=== PATIENT | male | born 1975 | race Caucasian/White ===

== ENCOUNTER 2018-10-04 03:30 | Inpatient (IN) ==
[2018-10-04 04:20] LABS: BASO# 0.05 X1000 (0.0-0.2); BASO% 0.7 % (0.0-0.8); EOS# 0.18 X1000 (0.0-0.7); EOS% 2.5 % (0.0-10.0); HEMATOCRIT 40.4 % (42.0-52.0); HEMOGLOBIN 13.7 g/dL (14.0-18.0); LYMPH# 2.81 X1000 (1.2-3.4); LYMPH% 39.2 % (20.5-51.1); MCH 30.6 PG (27-31); MCHC 33.9 g/dL (33-37); MCV 90.4 FL (81-99); MONO# 0.36 X1000 (0.11-0.59); MPV 10.8 FL (7.4-10.4); NEUT# 3.77 X1000 (1.4-6.5); NEUT% 52.6 % (42.2-75.2); PLT 225 X1000 (130-400); RBC 4.47 XMIL (4.7-6.1); RDW 14.5 % (11.5-14.5); WBC 7.17 X1000 (4.8-10.8)
[2018-10-04] MEDS ORDERED: ASPIRIN PO ONE (04:30)
--- NOTE | 2018-10-04 04:30 | PROVIDER DOCUMENTATION ---
HPI-Chest Pain - General Chief Complaint: Shortness of Breath Stated Complaint: SOB/CHF Time Seen by Provider: 10/04/18 04:01 Allergies/Adverse Reactions: Patient Allergies Allergy/AdvReac Type Severity Reaction Status Date / Time No Known Allergies Allergy Verified 10/04/18 04:05 Home Medications: Home Medication List Medication Instructions Recorded Confirmed Last Taken Type Albuterol Sulfate [Albuterol 8.5 gm INHALATION Q4-6H PRN PRN #1 09/15/18 10/04/18 10/03/18 18:00 Rx Sulfate Hfa] [email or web address] Furosemide [Lasix] 20 mg PO DAILY #30 tab 09/15/18 10/04/18 10/03/18 08:00 Rx - History of Present Illness-CP Nature of Presenting Problem: SOB X 3 WEEKS, EDEMA IS BETTER WITH RECENT ADIOTION LASIX, COSTAL MARGIN/EPIGSTRIC CP X 3 HR IS MOD SEVERE. SM 1PPD Location: reports: epigastric (costal margin pains x 3hr, moderate severe forcing pt to the ER. SOB worse tonight but problem x 3 weeks) Quality of Pain: reports: aching, tightness Severity in ED: moderate Onset/Duration: 1-3 hours ago Timing: still present Context/Activities at Onset: reports: light activity Associated Symptoms: reports: dizziness, fatigue, shortness of breath. denies: abdominal pain, edema, fever/chills, heartburn, syncope Nitro Today/Relief: no nitro taken today Aspirin Treatment Today: no aspirin today Review of Systems - Adult - REVIEW OF SYSTEMS - ADULT Constitutional: reports: no symptoms reported, fatique. denies: chills, fever Eyes: reports: no symptoms reported Ears, Nose, Mouth & Throat: reports: no symptoms reported Cardiovascular: reports: see HPI Respiratory: reports: cough, shortness of breath Gastrointestinal: reports: no symptoms reported Genitourinary: reports: no symptoms reported Musculoskeletal: reports: no symptoms reported Integumentary: reports: no symptoms reported Neurological: reports: no symptoms reported Psychiatric: reports: no symptoms reported Endocrine: reports: no symptoms reported Hematologic/Lymphatic: reports: no symptoms reported Allergic/Immunologic: reports: no symptoms reported All Other Systems: Reviewed and Negative Past History - Adult - PAST MEDICAL HISTORY-ADULT Review of Records: reports: Nursing Assessment Review, Medications Reviewed, Social history reviewed & non-contributory. Major Childhood Illnesses: reports: denies history Cardiovascular: reports: CHF Respiratory: reports: COPD Gastrointestinal: reports: denies history Obstetrical/Gynecological: reports: denies history Genitourinary: reports: denies history Musculoskeletal: reports: denies history Neurological: reports: denies history Psychiatric: reports: denies history Endocrine/Immune: reports: denies history Other Conditions: reports: denies history Physical Exam-General - PHYSICAL EXAM-ADULT Initial Vital Signs Reviewed: Yes (TACHYCARDIA, BP SATISFACTORY) - CONSTITUTIONAL General Appearance: alert, moderate distress - EYES Eyes: PERRL/EOMI - HEAD, EARS, NOSE, MOUTH & THROAT HENMT: moist mucous membranes - NECK Neck: supple - RESPIRATORY Respiratory: lungs clear, normal breath sounds, no accessory muscle use - CARDIOVASCULAR Cardiovascular: regular rate, rhythm, no edema, no murmur, JVD, tachycardia, gallop/S4 (TENDER AND FULLNESS OVER LIVER) - GASTROINTESTINAL (ABDOMEN) Abdominal Exam: non tender, soft, other - MUSCULOSKELETAL Extremity: normal range of motion, non-tender, normal gait, normal inspection, no pedal edema, no calf tenderness, normal capillary refill - SKIN Integumentary: normal color, normal turgor, warm/dry - 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, grossly normal, no motor/sensory deficits - PSYCHIATRIC Psych/Mental Status: normal mood/affect, normal thought content, normal thought process, oriented x 3 - HEART Score HEART Score: History: Moderately Suspicious HEART Score: ECG: Non-Specific Repolarization Disturbance/LBBB/PM HEART Score: Age: < or = 45 Years HEART Score: Risk Factors for Atherosclerotic Disease: 1 or 2 Risk Factors HEART Score: Troponin: < or = Normal Limit Total HEART Score:: 3 Progress - PLAN OF CARE/RESULTS Progress/Plan/Lab Results: Vital Signs - 8 hr 10/04/18 03:32 10/04/18 03:44 10/04/18 03:45 Temperature 97.7 F Pulse Rate 114 H 120 H Respiratory Rate 28 H 26 H 28 H Blood Pressure 130/96 127/107 O2 Sat by Pulse Oximetry 100 90 L 92 L 10/04/18 03:47 10/04/18 04:00 10/04/18 04:02 Temperature Pulse Rate 116 H 117 H 121 H Respiratory Rate 26 H 17 26 H Blood Pressure 130/95 127/90 O2 Sat by Pulse Oximetry 95 100 99 10/04/18 04:10 10/04/18 04:17 10/04/18 04:20 Temperature Pulse Rate 119 H 120 H 118 H Respiratory Rate 18 26 H 23 Blood Pressure 126/108 O2 Sat by Pulse Oximetry 98 97 99 10/04/18 04:35 10/04/18 04:40 10/04/18 04:47 Temperature Pulse Rate 122 H 126 H 124 H Respiratory Rate 26 H 30 H 20 Blood Pressure 116/94 O2 Sat by Pulse Oximetry 98 98 100 10/04/18 04:50 10/04/18 05:00 10/04/18 05:02 Temperature Pulse Rate 121 H 118 H 110 H Respiratory Rate 22 22 22 Blood Pressure 128/99 O2 Sat by Pulse Oximetry 97 98 97 10/04/18 05:10 10/04/18 05:17 10/04/18 05:20 Temperature Pulse Rate 118 H 117 H 112 H Respiratory Rate 22 24 13 Blood Pressure 129/100 O2 Sat by Pulse Oximetry 98 98 100 10/04/18 05:30 10/04/18 05:32 10/04/18 05:40 Temperature Pulse Rate 115 H 115 H 114 H Respiratory Rate 24 22 15 Blood Pressure 148/85 O2 Sat by Pulse Oximetry 98 100 98 Laboratory Results - last 24 hr 10/04/18 10/04/18 10/04/18 03:57 03:57 03:57 WBC 7.17 RBC 4.47 L Hgb 13.7 L Hct 40.4 L MCV 90.4 MCH 30.6 MCHC 33.9 RDW Std Deviation 14.5 Plt Count 225 MPV 10.8 H Immature Gran % (Auto) 0.0 Neut % (Auto) 52.6 Lymph % (Auto) 39.2 Dillon % (Auto) 5.0 Eos % (Auto) 2.5 Baso % (Auto) 0.7 Immature Gran # (Auto) 0.00 Neut # (Auto) 3.77 Lymph # (Auto) 2.81 Dillon # (Auto) 0.36 Eos # (Auto) 0.18 Baso # (Auto) 0.05 Sodium 141 Potassium 4.1 Chloride 104 Carbon Dioxide 25 Anion Gap 12 BUN 14 Creatinine 1.0 Estimated GFR/1.73 m2 > 60 BUN/Creatinine Ratio 14 Glucose 104 Calculated Osmolality 282 Calcium 9.0 Total Bilirubin 0.46 AST 33 ALT 34 Alkaline Phosphatase 103 Creatine Kinase 93 Troponin T 0.011 [id number]-[id number] Pept Total Protein 7.0 Albumin 3.9 Globulin 3.1 Albumin/Globulin Ratio 1.3 Plasma Lactate Urine Opiates Screen Ur Oxycodone Screen Ur Methadone, Qual Ur Barbiturates Screen Ur Phencyclidine Scrn Ur Amphetamines Screen U Benzodiazepines Scrn Urine Cocaine Screen U Cannabinoids Screen 10/04/18 10/04/18 10/04/18 03:57 04:22 04:48 WBC RBC Hgb Hct MCV MCH MCHC RDW Std Deviation Plt Count MPV Immature Gran % (Auto) Neut % (Auto) Lymph % (Auto) Dillon % (Auto) Eos % (Auto) Baso % (Auto) Immature Gran # (Auto) Neut # (Auto) Lymph # (Auto) Dillon # (Auto) Eos # (Auto) Baso # (Auto) Sodium Potassium Chloride Carbon Dioxide Anion Gap BUN Creatinine Estimated GFR/1.73 m2 BUN/Creatinine Ratio Glucose Calculated Osmolality Calcium Total Bilirubin AST ALT Alkaline Phosphatase Creatine Kinase Troponin T [id number] Pept 5671 H Total Protein Albumin Globulin Albumin/Globulin Ratio Plasma Lactate 2.1 Urine Opiates Screen NONE DETECTED Ur Oxycodone Screen NONE DETECTED Ur Methadone, Qual NONE DETECTED Ur Barbiturates Screen NONE DETECTED Ur Phencyclidine Scrn NONE DETECTED Ur Amphetamines Screen PRESUMPTIVE POSITIVE A U Benzodiazepines Scrn NONE DETECTED Urine Cocaine Screen NONE DETECTED U Cannabinoids Screen PRESUMPTIVE POSITIVE A Orders Category Date Time Status Saline Loc NOW Care 10/04/18 04:08 Active CHEST-2 VIEWS [RAD] Stat Exams 10/04/18 04:01 Taken BLOOD CULTURE [BLDCUL] Stat Lab 10/04/18 04:40 Results CBC WITH DIFF [HEME] Stat Lab 10/04/18 03:57 Completed CK PROFILE [SP CHEM] Stat Lab 10/04/18 03:57 Completed COMPREHENSIVE METABOLIC PANEL [CHEM] Stat Lab 10/04/18 03:57 Completed LACTATE, PLASMA [CHEM] Stat Lab 10/04/18 04:22 Completed PRO B-NATRIURETIC PEPTIDE Stat Lab 10/04/18 03:57 Completed TROPONIN T Stat Lab 10/04/18 03:57 Completed URINE DRUG SCREEN Stat Lab 10/04/18 04:48 Completed Aspirin Med 10/04/18 04:30 Discontinued 325 mg PO NOW ONE Aspirin EC Med 10/04/18 04:33 Discontinued 325 mg .ROUTE .STK-MED ONE Furosemide [Lasix] Med 10/04/18 05:31 Discontinued 40 mg IV NOW ONE EKG [EKG] Stat Ther 10/04/18 03:59 Ordered Result Diagrams: 10/04/18 03:57 10/04/18 03:57 - CONSULTS/PCP/HOSPITALIST Notification #1 *Consult/PCP/Hospitalist*: DR KATE Time Discussed: 06:21 Consult Disposition: Admit Departure - Departure Date of Disposition Decision: 10/04/18 Time of Disposition Decision: 06:21 DIAGNOSIS: Acute exacerbation of congestive heart failure, Tachycardia, Cardiomegaly, Amphetamine abuse, Tobacco abuse Disposition: ADMITTED INPATIENT 09 Certified Medical Emergency: Emergent Condition: Fair Referrals and Follow-Ups: None,PCP [Primary Care Provider] - - Critical Care Note This patient required my direct & personal management of CC.: Yes Total Time (mins): 30 Critical Care Statement: This patient required my direct personal management to treat or rule out processes, the absence of which, could potentiallly result in sudden, clinically significant life or limb threatening deterioration. Attestation - Physician/ APRYL Attestation The physician spent face to face time with patient:: Yes Advanced Practice Provider documentation review:: Supervising physician onsite and consulted in the evaluation and care of this patient. The physician did have a face to face encounter with the patient.
[2018-10-04] MEDS ORDERED: ASPIRIN EC ONE (04:33)
[2018-10-04 04:49] LABS: AGAP 12; ALB/GLOB RATIO 1.3; ALBUMIN 3.9 g/dL (3.5-5.0); ALKALINE PHOSPHATASE 103 U/L (32-122); BUN 14 mg/dL (8-22); CHLORIDE 104 mmol/L (98-107); CK PROFILE 93 U/L (24-204); COSMO 282; ESTIMATED GFR > 60; GLUCOSE 104 mg/dL (70-104); GOT 33 U/L (10-34); GPT 34 U/L (10-44); POTASSIUM 4.1 mmol/L (3.5-5.1); SODIUM 141 mmol/L (136-145); TCO2 25 mmol/L (25-35); TOTAL BILIRUBIN 0.46 mg/dL (0.20-1.00)
[2018-10-04] MEDS ORDERED: LASIX IV ONE (05:31)
[2018-10-04 05:54] LABS: UR AMPHETAMINES QUAL PRESUMPTIVE POSITIVE (NONE DETECT); UR BARBITUATES QUAL NONE DETECTED (NONE DETECT); UR BENZODIAZEPIN QUAL NONE DETECTED (NONE DETECT); UR CANNABINOIDS QUAL PRESUMPTIVE POSITIVE (NONE DETECT); UR COCAINE QUAL NONE DETECTED (NONE DETECT); UR METHADONE QUAL NONE DETECTED (NONE DETECT); UR OPIATES QUAL NONE DETECTED (NONE DETECT); UR OXYCODONE QUAL NONE DETECTED (NONE DETECT); UR PCP QUAL NONE DETECTED (NONE DETECT)
--- NOTE | 2018-10-04 06:26 | Diag Imaging Result Doc PS360 ---
CHEST-2 VIEWS - 10/04/2018 INDICATION: SOB COMPARISON: 09/15/2018 FINDINGS: There is cardiomegaly and mild pulmonary vascular congestion. The pulmonary edema has nearly resolved. There is still some trace residual infiltrate in the posterior costophrenic angle on the left side. IMPRESSION: Significant improvement in the pulmonary edema. Cardiomegaly and pulmonary vascular congestion. Electronically signed by Beto Mcduffie 10/04/2018 6:23 AM
[2018-10-04] MEDS ORDERED: TYLENOL PO PRN ×2 (06:46→06:49)
[2018-10-04] MEDS ORDERED: ZOFRAN IV PRN (06:46)
[2018-10-04] MEDS ORDERED: VENTOLIN HFA INH PRN (06:48)
--- NOTE | 2018-10-04 07:19 | EKG Report ---
Test Performed on : 10/04/2018 03:49:26 AM Test Reason : SOB Blood Pressure : / mmHG Vent. Rate : 119 BPM Atrial Rate : 119 BPM P-R Int : 126 ms QRS Dur : 104 ms QT Int : 344 ms P-R-T Axes : 067 005 168 degrees QTc Int : 483 ms Sinus tachycardia. Left ventricular hypertrophy with repolarization abnormality Abnormal ECG When compared with ECG of 15-SEP-2018 04:38, (Unconfirmed) No significant change was found Unconfirmed Result
[2018-10-04] MEDS: LASIX IV SCH ×2 (07:36→18:37)
[2018-10-04] MEDS: LOVENOX SUBQ SCH (07:36)
--- NOTE | 2018-10-04 08:01 | HISTORY AND PHYSICAL ---
ADDENDUM The patient is seen and examined by myself. Full note dictated and discussed with nurse practitioner. Patient presented to the hospital with a couple of weeks increased shortness of breath, coughing. He states he was just in the hospital recently, was diagnosed again with congestive heart failure, states he has not had an echocardiogram in several years. Denies using methamphetamine, although, his urine drug screen was actually positive. He states he has been out of his Lasix. We will admit him to the hospital. Will check an echocardiogram, watch him for withdrawal, place him on Lasix, again attempting to reeducate him. Please see full note dictated by nurse practitioner. cc: Frankie Trujillo MD
--- NOTE | 2018-10-04 09:53 | HISTORY AND PHYSICAL ---
CHIEF COMPLAINT: Shortness of breath times 2 to 3 weeks. HISTORY OF PRESENT ILLNESS: Mr. Clayton is a 43-year-old male who presents to the ER today with complaints of shortness of breath x2 to 3 weeks. The patient states he has some chest pain with this shortness of breath. There is mild pressure to the mid abdomen that comes and goes. The patient states that he also has a cough that is productive with yellow sputum. The patient states that 3 weeks ago he came to the ER, and started him on Lasix 20 mg p.o. daily and a albuterol inhaler daily. The patient denies any nausea, vomiting, or diarrhea. The patient denies any other pain besides the chest pain. The patient denies any edema to the lower extremities. PAST MEDICAL HISTORY: Positive for CHF that was diagnosed 3 years ago. The patient was initially started on Lasix, but however, he quit taking his Lasix sometime back because he ran out of the medication. The patient was started on Lasix again 3 weeks ago in the ER. Methamphetamine abuse. PAST SURGICAL HISTORY: None. FAMILY HISTORY: Mother is currently living with no medical history. Dad is and committed suicide. SOCIAL HISTORY: The patient smokes cigarettes 1 pack per day for greater than 15 years. Denies alcohol. Patient states that he quit doing methamphetamines greater than a year ago. However, his drug screen is positive for amphetamine and marijuana. 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 ALLERGIES: No known drug allergies. MEDICATIONS: Lasix 20 mg p.o. daily and albuterol sulfate inhaler 1 puff every 4 to 6 hours p.r.n. LABORATORY/DIAGNOSTICS: White blood cell count 7.17, hemoglobin 13.7, hematocrit 40.4, and platelet count 225,000. Sodium 141, potassium 4.1, chloride 104, carbon dioxide 25, BUN 14, creatinine 1, glucose 104, calcium 9, total bilirubin is 0.46, AST is 33, ALT is 34, alkaline phosphatase 103. Creatinine kinase is 93. Troponin's 0.011. ProBNP 5671, plasma lactate 2.1. Toxicology report shows the patient is positive for amphetamine and cannabinoids. Chest x-ray on 10/04 in comparison to a chest x-ray that was done on 09/15/2018 shows significant improvement in pulmonary edema, cardiomegaly and pulmonary vascular congestion. REVIEW OF SYSTEMS: A 14 point review of system was conducted with the patient. All were negative except for pertinent positives mentioned above in HPI. PHYSICAL EXAMINATION: VITAL SIGNS: Heart rate 115, respiratory rate 22, blood pressure 148/85 with a MAP of 99. 02 sats 100% on room air. GENERAL: This is a well-developed 43-year-old male lying on the ER stretcher in no acute distress. He is alert and oriented x4 and able to answer questions appropriately. HEENT: Head is atraumatic and normocephalic. Pupils are equal, round, reactive to light and accommodation. Oral mucosa is dry. NECK: Supple. Trachea is midline. CARDIOVASCULAR: S1, S2 noted. No murmurs, gallops, or rubs appreciated with a regular rate and rhythm. No JVD. PULMONARY: The patient has symmetrical chest expansion bilaterally. Lungs sounds are clear to auscultation bilaterally all mckeon. ABDOMEN: Soft and nondistended. There is no overt tenderness noted. Bowel sounds are present in all 4 quadrants and were normoactive. EXTREMITIES: Pedal pulses present +2. Capillary refill is less than 3. Negative for edema. INTEGUMENTARY: The patient's skin is intact, pink, warm, and dry. NEUROLOGIC: The patient is alert and oriented x4, and able to move all extremities and able to follow commands, does not appear to have any focal neurological deficits noted at this time. ASSESSMENT AND PLAN: 1. CHF exacerbation. 2. We will start the patient on 40 mg Lasix IV q.12 hours. Serial CK and troponin's ordered. Echocardiogram ordered for this morning. 3. Acute respiratory distress. Albuterol sulfate inhaler q.4 to 6 p.r.n. 4. Drug abuse. We will give cessation information. 5. Tobacco dependence. We will give cessation information. Dictated by DIONY Orlando for Frankie Trujillo MD cc: Frankie Trujillo MD [facility]
[2018-10-04] MEDS: COREG PO SCH ×2 (12:47→20:23)
--- NOTE | 2018-10-04 14:27 | ECHO REPORT ---
ORDER DATE: 10/04/2018 INDICATION: Congestive heart failure, chronic obstructive pulmonary disease. FINDINGS: 1. The right atrium is mildly enlarged at 4.5 cm. 2. Moderate tricuspid regurgitation. RV systolic pressure of 80 suggesting pulmonary hypertension. 3. The right ventricle is enlarged with moderate reduction in RV systolic function. 4. Mild pulmonic insufficiency. 5. Moderate left atrial enlargement with a volume index of 38. 6. There is no mitral valve prolapse. Moderate mitral regurgitation. There is apical tenting of the mitral leaflets. 7. Left ventricle is severely dilated with an end-diastolic dimension of 7.5 cm. Normal wall thicknesses with a posterior and interventricular septal wall thickness of 0.9 cm each. Severe reduction in LV systolic function with an estimated EF of 10% to 15% and global hypokinesis. Optison echo contrast was used on this study. I do not see any definite evidence of LV thrombus although the apex on some views is difficult to visualize. 8. Aortic valve opens well. Trace insufficiency. No stenosis. 9. Aorta appears normal in visualized segments. 10. No pericardial effusion seen. cc: MD Frankie Lomeli MD
[2018-10-04] MEDS: NICODERM PATCH TD SCH (18:55)
[2018-10-04 19:48] LABS: HIV ANTIBODY SCREEN SEE COMMENTS
[2018-10-05] MEDS: LOVENOX SUBQ SCH ×2 (05:50→07:03)
[2018-10-05] MEDS: LASIX IV SCH ×2 (05:51→07:03)
[2018-10-05 07:27] LABS: HEMATOCRIT 44.2 % (42.0-52.0); HEMOGLOBIN 15.3 g/dL (14.0-18.0); MCH 30.5 PG (27-31); MCHC 34.6 g/dL (33-37); MCV 88.2 FL (81-99); MPV 11.1 FL (7.4-10.4); RBC 5.01 XMIL (4.7-6.1); RDW 14.4 % (11.5-14.5); WBC 7.09 X1000 (4.8-10.8)
[2018-10-05 07:36] LABS: AGAP 14; ALB/GLOB RATIO 1.1; ALBUMIN 3.8 g/dL (3.5-5.0); ALKALINE PHOSPHATASE 99 U/L (32-122); BUN 17 mg/dL (8-22); CALCIUM 9.2 mg/dL (8.8-10.2); CHLORIDE 99 mmol/L (98-107); COSMO 272; CREATININE 0.9 mg/dL (0.7-1.2); ESTIMATED GFR > 60; GLUCOSE 109 mg/dL (70-104); GOT 25 U/L (10-34); GPT 27 U/L (10-44); POTASSIUM 3.7 mmol/L (3.5-5.1); SODIUM 135 mmol/L (136-145); TCO2 22 mmol/L (25-35); TOTAL BILIRUBIN 0.88 mg/dL (0.20-1.00); TOTAL PROTEIN 7.4 g/dL (6.3-8.3)
[2018-10-05] MEDS: COREG PO SCH ×2 (09:44→21:41)
[2018-10-05] MEDS: NICODERM PATCH TD SCH (09:44)
[2018-10-05] MEDS ORDERED: LANOXIN PO SCH (11:00)
[2018-10-05 12:33] LABS: HEPATITIS PROFILE ACUTE SEE COMMENTS
[2018-10-05] MEDS: CAPOTEN PO SCH ×2 (15:35→21:41)
[2018-10-05] MEDS: ALDACTONE PO SCH (15:44)
[2018-10-05] MEDS: LANOXIN PO SCH ×2 (16:04→21:41)
--- NOTE | 2018-10-05 17:59 | PROGRESS NOTE ---
DATE: 10/05/2018 SUBJECTIVE: Patient reports breathing better. Denies any fever or chills. No chest pain. OBJECTIVE: Vital Signs: Temperature 98.1, heart rate 99, respiratory rate 16, blood pressure 102/84, O2 saturation 100% on room air. General Examination: This is a 44-year-old, male, lying in bed, in no acute distress. Cardiovascular: S1, S2 heard. No murmurs, gallops, or rubs. Regular rate and rhythm. Respiratory: Clear bilaterally to auscultation. No work of breathing or using accessory muscles. Abdomen: Soft, nontender to palpation. Bowel sounds present. No organomegaly. Extremities: No clubbing. No cyanosis or edema. Peripheral pulses present in both legs. Neurological: Patient alert and oriented x3. Moves 4 extremities. LABORATORY DATA: Reviewed. ASSESSMENT AND PLAN: 1. Congestive heart failure exacerbation. Clinically, this patient is doing better. Apparently he was diagnosed with this problem approximately 3 years ago in [place]. The echocardiogram here showed severely dilated left ventricle with ejection fraction of 10 to 15 percent and global hypokinesis. At this point, we will continue with Lasix. We will consult Cardiology, considering this severe congestive heart failure. We will follow recommendations. 2. Polysubstance abuse. The patient is abusing amphetamines and cannabinoids. Patient is strongly advised to stop using those drugs. Mainly considering his history of congestive heart failure. 3. Tobacco dependence. Patient advised to stop smoking. cc: Xavier Cabral MD
--- NOTE | 2018-10-05 23:01 | CARDIOLOGY CONSULTATION ---
DATE: 10/05/2018 CONSULTATION REQUESTED BY: Hospitalist Service. REASON FOR CONSULTATION: Congestive heart failure. CHIEF COMPLAINT: Dyspnea, swelling. HISTORY OF PRESENT ILLNESS: Mr. Clayton is an unfortunate, 44-year-old, male who presented to the emergency room department on October 04 with complaints of several days of increasing dyspnea, fatigue, poor exercise capacity, and some puffiness of his legs. Upon presentation, they did a chest x-ray that showed significant evidence of pulmonary edema. EKG showed sinus tachycardia with a pattern of left ventricular hypertrophy and diffuse repolarization abnormality. A proBNP level that was checked upon admission was elevated at 5371. BUN and creatinine were normal. Troponins were checked 4 times; they are negative. His hemoglobin was 13.7. The patient has been given diuretics, and an echocardiogram has been done which was reported by Dr. Terry Pastor as indicating dilatation of the left ventricle with ejection fraction of 10% to 50% and global hypokinesis. There is significant diastolic function noted. The patient tested positive for amphetamine, and he does acknowledge using amphetamine couple of days prior to admission. 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 PAST HISTORY: Positive for a diagnosis of congestive heart failure that was given to him 3 years ago in [place]. At that time, he was given a prescription for Lasix. However, he did not follow up with a planning lead in [place]. SURGICAL HISTORY: Negative. SOCIAL HISTORY: He lives with girlfriend. He has a 1 child, 17 years of age, and his girlfriend is currently . The patient has been using drugs since the age of 21. He has used cocaine initially and lately amphetamine and marijuana. The patient smokes cigarettes 1 pack a day for many years. He does not drink alcohol. ALLERGIES: Negative. MEDICATIONS: Home medications at the time of admission included albuterol and furosemide. In the hospital, he has been placed on low-dose carvedilol, nicotine patch, and acetaminophen. REVIEW OF SYSTEMS: Fourteen-point review of system conducted including dermatological, psychiatric, neurological, musculoskeletal, genitourinary, and gastrointestinal. On gastrointestinal, he admits to some epigastric discomfort lately. His immunological, hearing, visual, etc., all of them are unremarkable. PHYSICAL EXAMINATION: Vital signs: Blood pressure 102/84, temperature 98 degrees, pulse 99, respirations 16. General: The patient awake, alert, oriented, in no distress. HEENT: Unremarkable. Chest: Diminished breath sounds at bases. Cardiovascular: Heart sounds regular rhythm with a gallop rhythm, S4. Abdomen: Nontender, soft. No masses. No hepatomegaly. Extremities: Show decreased pulses. No peripheral edema. Neurologic: Nonfocal. Moves 4 extremities. IMPRESSION: Patient presenting with decompensated chronic systolic heart failure. 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 More than likely, cocaine is the culprit. Amphetamine probably has contributed to it. RECOMMENDATION: At this time, the patient is strongly advised against using any kind of drugs, including tobacco and certainly illicit drugs. We will initiate MOSES inhibitors on him. I will have to request a vest to prevent sudden . The patient is really at high risk of sudden . We will have to pursue application with Social Security to obtain disability on him because he cannot work, given his extremely poor cardiac condition. We will have to make a referral to [facility] to enlist him as a possible transplant candidate if he successfully quits using drugs for several months. I told him clearly that he is at very high risk of , and we will not be able to help him if he continues to use drugs. We will follow him. cc: Joao Jesus MD
[2018-10-06] MEDS: LANOXIN PO SCH ×2 (04:18→10:45)
[2018-10-06] MEDS: CAPOTEN PO SCH ×3 (04:19→21:03)
[2018-10-06] MEDS: LOVENOX SUBQ SCH (06:01)
[2018-10-06 07:05] LABS: AGAP 13; BUN 18 mg/dL (8-22); CALCIUM 9.3 mg/dL (8.8-10.2); CHLORIDE 100 mmol/L (98-107); COSMO 273; CREATININE 0.9 mg/dL (0.7-1.2); ESTIMATED GFR > 60; GLUCOSE 112 mg/dL (70-104); POTASSIUM 3.7 mmol/L (3.5-5.1); SODIUM 135 mmol/L (136-145); TCO2 22 mmol/L (25-35)
[2018-10-06] MEDS: ALDACTONE PO SCH (08:23)
[2018-10-06] MEDS: NICODERM PATCH TD SCH (08:24)
[2018-10-06] MEDS: COREG PO SCH ×2 (08:24→21:03)
--- NOTE | 2018-10-06 09:36 | Diag Imaging Result Doc PS360 ---
EXAM: CHEST-2 VIEWS HISTORY: pulmonary edema TECHNIQUE: Chest two views COMPARISON: 10/04/2018 FINDINGS: The lungs are well expanded. The heart is not enlarged. The vessels are not distended. There are no infiltrates. No pleural effusions. IMPRESSION: No pulmonary edema on the current exam. Electronically signed by Timothy Hunter 10/06/2018 9:34 AM
--- NOTE | 2018-10-06 15:06 | PROGRESS NOTE ---
DATE: 10/06/2018 SUBJECTIVE: Patient reports feeling fine. No shortness of breath at all. No chest pain. OBJECTIVE: Vitals: Temperature 98.6 degrees, heart rate 89, respiratory 18, blood pressure 105/73, O2 saturation 100% on room air . General: This is a chronically ill appearing 43-year- old male lying in bed in no acute distress. Cardiovascular: S2 heard. No murmurs, gallops, rubs. Regular rate and rhythm. Respiratory: Clear bilaterally to auscultation. No work of breathing or using accessory muscles. Abdomen: Soft, nontender to palpation, bowel sounds present. No organomegaly. Extremities: No clubbing, cyanosis or edema. Peripheral pulses present. Neuro: Patient is alert oriented x3, moves 4 extremities. LABORATORY DATA: Reviewed. ASSESSMENT AND PLAN: 1. Acute systolic congestive heart failure. Dr. Jesus has evaluated this patient and they have requested a life vest to prevent and that currently he is on captopril, digoxin, spironolactone and carvedilol. Clinically patient is doing good. Also x-ray did not show any pulmonary edema. At this point will continue with same management. Also Dr. Jesus has recommended to make referral to [facility] transplant clinic for possible transfer but he needs to be off of drugs first. At this point will continue with same management. 2. Polysubstance abuse aware, patient advised to stop using drugs. cc: MD GE Finnegan
[2018-10-07] MEDS: CAPOTEN PO SCH ×3 (05:00→22:08)
[2018-10-07] MEDS: LOVENOX SUBQ SCH (06:04)
[2018-10-07 06:21] LABS: AGAP 13; BUN 16 mg/dL (8-22); CALCIUM 9.2 mg/dL (8.8-10.2); CHLORIDE 104 mmol/L (98-107); COSMO 279; CREATININE 0.9 mg/dL (0.7-1.2); ESTIMATED GFR > 60; GLUCOSE 105 mg/dL (70-104); POTASSIUM 4.2 mmol/L (3.5-5.1); SODIUM 139 mmol/L (136-145); TCO2 22 mmol/L (25-35)
[2018-10-07] MEDS: ALDACTONE PO SCH (09:40)
[2018-10-07] MEDS: COREG PO SCH ×2 (09:40→22:07)
[2018-10-07] MEDS: NICODERM PATCH TD SCH (09:40)
[2018-10-07] MEDS: LANOXIN PO SCH (09:41)
--- NOTE | 2018-10-07 12:46 | CARDIOLOGY PROGRESS NOTE ---
DATE: 10/07/2018 CHIEF COMPLAINT: Dyspnea. SUBJECTIVE: Mr. Clayton is doing better. He denies having any chest pain or palpitations. No syncope. Telemetry shows no evidence of recurrent ventricular tachycardia. OBJECTIVE: Blood pressure is 101/70, temperature 97.8, pulse is 112, respirations 18. He is awake, alert, in no distress. HEENT is unremarkable. Chest sounds relatively clear to auscultation and percussion. Heart sounds are slightly tachycardic at times. No definite gallop. Abdomen is nontender, soft. No masses. No hepatomegaly. Extremities showed no edema. Neurologic: He is appropriate, awake, oriented x3, moves all 4 extremities. Gait is normal. DIAGNOSTIC DATA: Blood work shows sodium 139, potassium 4.2, BUN is 16, creatinine 0.9. IMPRESSION: 1. The patient has chronic congestive heart failure, systolic, secondary to nonischemic dilated cardiomyopathy. 2. Nonsustained ventricular tachycardia. 3. History of substance abuse including amphetamine and cocaine in the past. RECOMMENDATIONS: At this time, we will arrange for a vest device. We will switch him over to lisinopril, continue digoxin, continue low dose beta david. I will arrange for a gated nuclear resting test in the morning to have a baseline ejection fraction that we can follow. Further advice will be forthcoming. cc: Joao Jesus MD [facility]
--- NOTE | 2018-10-07 13:56 | PROGRESS NOTE ---
DATE: 10/07/2018 SUBJECTIVE: The patient reports feeling fine. No chest pain. No shortness of breath. OBJECTIVE: Vital Signs: Temperature 97.8 degrees, heart rate 95, respiratory rate 18, blood pressure 101/70, O2 saturation 100% on room air. General Examination: This is a chronically ill- appearing, 43-year-old, male, lying in bed, in no acute distress. Cardiovascular Examination: S1 and S2 heard. No murmurs, gallops, or rubs. Regular rate and rhythm. Respiratory Examination: Clear bilaterally to auscultation. No work of breathing or using accessory muscles. Abdomen: Soft, nontender to palpation. Bowel sounds present. No organomegaly. Extremities: No clubbing, cyanosis, or edema. Peripheral pulses present in both legs. Neurological Examination: The patient is alert and oriented x3. Moves 4 extremities. Laboratory Data: Reviewed. ASSESSMENT AND PLAN: 1. Acute systolic congestive heart failure. At this point, the patient is stable. Currently, he is on lisinopril, digoxin, spironolactone, and carvedilol. Cardiology is following this patient. We are keeping this patient until tomorrow to get his LifeVest. Also, he has been scheduled for a Lexiscan test tomorrow to have a baseline ejection fraction. We will follow recommendations. If everything is fine, cardiology may decide to let this patient go home. We will see what they have to say tomorrow after the procedure. 2. Polysubstance abuse. Patient is strongly advised to stop using drugs that will definitely make his heart function worse. cc: Xavier Cabral MD
[2018-10-08 06:55] LABS: AGAP 11; BUN 16 mg/dL (8-22); CALCIUM 8.6 mg/dL (8.8-10.2); CHLORIDE 106 mmol/L (98-107); COSMO 279; CREATININE 0.9 mg/dL (0.7-1.2); ESTIMATED GFR > 60; GLUCOSE 107 mg/dL (70-104); POTASSIUM 4.3 mmol/L (3.5-5.1); SODIUM 139 mmol/L (136-145); TCO2 22 mmol/L (25-35)
[2018-10-08] MEDS: CAPOTEN PO SCH (07:03)
[2018-10-08] MEDS: LOVENOX SUBQ SCH (07:03)
--- NOTE | 2018-10-08 11:15 | PROGRESS NOTE ---
DATE: 10/08/2018 SUBJECTIVE: The patient reports feeling fine. No chest pain reported. No shortness of breath. OBJECTIVE: Vital Signs: Temperature 98.5, heart rate 96, respiratory rate 18, blood pressure 103/69, O2 saturation 99% on room air. General Examination: This is a chronically ill-appearing, 43-year-old male, lying in bed in no acute distress. Cardiovascular Exam: S1, S2 heard. No murmurs, gallops, or rubs. Regular rate and rhythm. Respiratory Exam: Clear bilaterally to auscultation. No work of breathing or using accessory muscles. Abdomen: Soft. Nontender to palpation. Bowel sounds present. No organomegaly. Extremities: No clubbing, cyanosis, or edema. Peripheral pulses present in both legs. Neurological Exam: Patient alert and oriented x3. Moves 4 extremities. LABORATORY DATA: Reviewed. ASSESSMENT AND PLAN: 1. Acute systolic congestive heart failure. Clinically, this patient is stable. Cardiology is following this patient. They have ordered myocardial perfusion scan to have baseline ejection fraction. Also, we are working on have LifeVest for this patient. Whenever we have those exams done, we can discharge this patient. 2. Polysubstance abuse. Patient has been strongly advised to stay away from drugs. 3. Patient following leads from Cardiology. cc: Xavier Cabral MD
[2018-10-08] MEDS: PRINIVIL PO SCH (11:31)
[2018-10-08] MEDS: ALDACTONE PO SCH (11:31)
[2018-10-08] MEDS: LANOXIN PO SCH (11:32)
[2018-10-08] MEDS: COREG PO SCH ×2 (11:32→21:39)
[2018-10-08] MEDS: NICODERM PATCH TD SCH (11:33)
--- NOTE | 2018-10-08 14:03 | Diag Imaging Result Document ---
PROCEDURE NAME: MYOCARDIAL PERFU SCAN, REST - 10/08/2018 PROCEDURE PERFORMED: Resting sestamibi interpretation. SUMMARY: The patient was administered 30.8 mCi of technetium 99-m sestamibi after which resting cardiac images were obtained. SPECT images were reconstructed in the short, horizontal long, and vertical long axes. Review of these images demonstrated severe left ventricular enlargement on SPECT images. There is a severe defect uptake involving the inferior and inferolateral ramos of the left ventricle. There is also a moderate to severe defect involving the mid to apical anteroseptal region of the left ventricle. Gated images demonstrate severe global hypokinesis and a calculated left ventricular ejection fraction of 18%. CONCLUSIONS: Abnormal resting sestamibi images demonstrating large severe defect involving the inferior and inferolateral wall of the left ventricle as well as a small to medium size area of moderately diminished activity in the mid to apical anteroseptal region of the left ventricle. Clinical correlation recommended. cc: MD Joao Perez MD
[2018-10-09] MEDS: LOVENOX SUBQ SCH (06:33)
--- NOTE | 2018-10-09 08:29 | CARDIOLOGY PROGRESS NOTE ---
DATE: 10/09/2018 CHIEF COMPLAINT: Shortness of breath. SUBJECTIVE: Mr. Clyaton is doing better. We are awaiting for the vest to be delivered. His telemetry shows no more ventricular tachycardia. OBJECTIVE: VITAL SIGNS: Blood pressure 97/54, temperature 98 degrees, pulse 88, respirations 16. GENERAL: The patient is awake, alert, oriented, no distress. HEENT: Unremarkable. CHEST: Clear to auscultation and percussion. HEART: Sounds regular rhythm. I do not hear a gallop or murmur. ABDOMEN: Nontender. EXTREMITIES: Show no edema. NEUROLOGICAL: Follows commands. Moves 4 extremities. BLOOD WORK: Today, hemoglobin was not checked. His sodium is 139, potassium 4.3. BUN is 16. Creatinine 0.9. Chloride is 106. Carbon dioxide 22. IMPRESSION: 1. Patient who presented with shortness of breath, decompensated congestive heart failure, functional class 3-4 [employer]. 2. 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 3. Nonsustained ventricular tachycardia. 4. Tobacco use. RECOMMENDATIONS: At this time, the patient seems to be optimized, at least for the short term. He may be discharged on the current medications that include carvedilol 3.125 twice a day, Digoxin 0.125 mg daily, lisinopril 10 mg daily, spironolactone 12.5 mg daily, and I will see him in my office in 2-3 weeks on followup. The patient needs to apply for disability and he needs to get this vest device to prevent sudden until he qualifies for implantation of internal cardioverter defibrillator. The patient is aware. cc: Joao Jesus MD
[2018-10-09] MEDS: ALDACTONE PO SCH (10:23)
[2018-10-09] MEDS: PRINIVIL PO SCH (10:23)
[2018-10-09] MEDS: NICODERM PATCH TD SCH (10:23)
[2018-10-09] MEDS: LANOXIN PO SCH (10:24)
[2018-10-09] MEDS: COREG PO SCH ×3 (10:24→20:11)
--- NOTE | 2018-10-09 15:35 | PROGRESS NOTE ---
DATE: 10/09/2018 SUBJECTIVE: The patient reports feeling fine. No chest pain. No shortness of breath. No palpitations noted. OBJECTIVE: Vital Signs: Temperature 98.1 degrees, heart rate 91, respiratory 14, blood pressure 113/72, O2 saturation 100% on room air. General Examination: This is a chronically ill- appearing, 43-year-old male, lying in bed in no acute distress. Cardiovascular exam: S1, S2 heard. No murmurs, gallops, or rubs. Regular rate and rhythm. Respiratory exam: Clear bilaterally to auscultation. No work of breathing or using accessory muscles. Abdomen: Soft, nontender to palpation. Bowel sounds present. No organomegaly. Extremities: No clubbing, cyanosis, or edema. Peripheral pulses present in both legs. Neurological exam: Patient alert, oriented x3. Moves 4 extremities. LABORATORY DATA: Review. ASSESSMENT AND PLAN: 1. Acute systolic congestive heart failure. The patient was admitted to the hospital for exacerbation of heart failure; apparently that is secondary to drugs. The echocardiogram and also the myocardial perfusion scan nuclear medicine confirm severe defect involving the inferior on inferolateral wall of the left ventricle. There is also severe global hypokinesis with ejection fraction of 18%. Clinically, this patient is stable and okay to go from Cardiology standpoint. Unfortunately, this patient is a high risk to develop severe arrhythmias, and the recommendation from Cardiology is to do LifeVest for this patient. Unfortunately patient does not have any insurance because of financial issues, and we are not able to obtain this LifeVest for him. At this point, director of social work and case management director have been involved in his case. Definitely is more expensive to keep this patient every single day to just wait for that LifeVest. In any case, we will talk to Social Service to see if hospital can provide this LifeVest for the patient. I think if he we discharge him without LifeVest, it is really a high risk and unsafe discharge. In any case, we will continue to monitor this patient closely here in the hospital. 2. Polysubstance abuse. The patient is using methamphetamines and marijuana and has been using cocaine for awhile. Patient is strongly advised to stop abusing drugs. DISPOSITION: Depending upon [facility]. cc: Xavier Cabral MD
[2018-10-10] MEDS: LOVENOX SUBQ SCH (06:45)
[2018-10-10] MEDS: PRINIVIL PO SCH (08:37)
[2018-10-10] MEDS: NICODERM PATCH TD SCH (08:42)
[2018-10-10] MEDS: LANOXIN PO SCH (08:43)
[2018-10-10] MEDS: ALDACTONE PO SCH (08:44)
[2018-10-10] MEDS: COREG PO SCH (08:44)
--- NOTE | 2018-10-10 15:20 | DISCHARGE SUMMARY ---
ADMISSION DATE: 10/04/2018 DISCHARGE DATE: ADDENDUM: To discharge summary dictated by nurse practitioner. I agree with most components of the discharge summary. In brief, Mr. Clayton was admitted for acute CHF exacerbation, likely related to his drug use. At the time of today's evaluation, he is denying any chest pain or shortness of breath. He is denying any nausea, vomiting, abdominal pain. We discussed about getting a LifeVest and I answered all of his questions. CURRENT VITAL SIGNS: Temperature 98.7 degrees, pulse 94, respiratory rate 16, blood pressure 110/64, saturating 100% room air. PHYSICAL EXAMINATION: General: Does not appear in any acute distress. HEENT: Oral cavity is moist. Lungs: Air entry bilaterally equal. No wheeze, rhonchi, crackles. Cardiovascular: S1, S2 normal. No murmur, rub or gallop. Abdomen: Soft, nontender. Extremities: No lower extremities edema. Neurologic: He is alert and oriented x3. I counseled him about not taking or using any recreational substances, he understood it. LABORATORY DATA: No CBC or BMP today. ASSESSMENT AND PLAN: Patient will be discharged on beta david, spironolactone and digoxin, Lasix and lisinopril. A BMP slip has been provided for him to get an outpatient BMP done as he is going on spironolactone and Lasix. He should follow up with Cardiology. TIME SPENT: More than 30 minutes were spent in discharging this patient. cc: Baltazar Louise MD
[2018-10-10 15:28] VITALS: BP 98/62
--- NOTE | 2018-10-11 06:35 | DISCHARGE SUMMARY ---
ADMISSION DATE: 10/04/2018 DISCHARGE DATE: 10/10/2018 ADMISSION DIAGNOSES: 1. Acute on chronic systolic heart failure exacerbation. 2. Dyspnea. 3. Polysubstance dependence. 4. Nicotine dependence. 5. Medical noncompliance. 6. Acute respiratory distress DISCHARGE DIAGNOSES: 1. Acute on chronic systolic heart failure exacerbation. 2. Dyspnea. 3. Polysubstance dependence. 4. Nicotine dependence. 5. Medical noncompliance. DIAGNOSTIC PROCEDURES AND FINDINGS: EKG 10/04/2018: Sinus rhythm with LV strain pattern. Chest x-ray 10/04/2018: Cardiomegaly, mild pulmonary vascular congestion. Chest x- ray 10/06/2018: No pulmonary edema. Echocardiogram 10/04/2018: EF 10 to 15%, global hypokinesis, moderate MR, apical tenting of the mitral leaflets, RV systolic pressure 80 suggesting pulmonary hypertension. Myocardial perfusion scan 10/08/2018: Abnormal resting sestamibi images demonstrating large severe defect involving the inferior and inferior lateral wall of the left ventricle as well as small to medium-sized area of moderately diminished activity in the mid to apical anteroseptal region of the left ventricle. Clinical correlation is recommended. EF 18%. HOSPITAL COURSE: Mr. Clayton is a 43-year-old male with a known history of systolic failure and polysubstance dependence along with medical noncompliance. He came to the ER at [facility] for shortness of breath for two or three weeks prior to admission as well as chest pain. He was also having some cough with yellow productive sputum. He has a known history of systolic heart failure. He reports being diagnosed three years prior in [place] but has not been compliant with medication. He also reports 15 plus pack year history of smoking as well as methamphetamine and marijuana. He came to the ER and was found to be in heart failure, he was given Lasix and he was eventually transferred to [facility] for further evaluation by the main[facility] strip gauger here. He was seen by Dr. Jesus, he had an echocardiogram which showed severely reduced EF at 10 to 15%, his medication was optimized and a myocardial perfusion scan was also done which did not show any ischemia but did show very large defects as described. We discussed nicotine and polysubstance cessation and where to get help if needed. It was also recommended by Cardiology that the patient get a life vest prior to leaving the hospital. That will be placed at 7:00 p.m. tonight and once that has been taken care of and the patient has been instructed on how to use it, he will be discharged. DISCHARGE MEDICATIONS: Albuterol sulfate HFA every four to six hours as needed, Lasix 20 mg daily, Aldactone 12.5 mg p.o. daily, Coreg 3.125 mg p.o. b.i.d., Lanoxin 125 mcg p.o. daily, lisinopril 10 mg p.o. daily. DISCHARGE ACTIVITY: Resume activity as tolerated. DISPOSITION AND OTHER DISCHARGE INSTRUCTIONS: The patient is discharged home to self-care. He is to continue life vest as directed by Cardiology. Follow up with Dr. Jesus at 1:45 p.m. We discussed at length the importance of immediately stopping all illicit substance use. All questions answered. DISCHARGE TIME: Greater than 35 minutes. Dictated by DIONY Warren for Baltazar Louise MD cc: DIONY Warren MD Luis N. Villanueva, MD I agree with most components of discharge summary mentioned above. A separate addendum has been dictated. [facility]
== END 2018-10-10 18:41 | disposition home or self-care (01) | DRG 292 ==
LOC: ED 03:30 → EDIPHOLD 08:27 → SUATTDRO 08:27 → 4N 08:58
PROVIDERS: ATTEND Internal Medicine
CPT/HCPCS: 71020; 71046; 78451; 80048; 80053; 80074; 80101; 80301; 80307; 80324; 80345; 80346; 80353; 80358; 80361; 80365; 82550; 83605; 83735; 83880; 83992; 84484; 85025; 85027; 86701; 87040; 87389; 93005; 93306; 93308; 94761; 96372; 96374; 99285; 99291; A9270; A9500; C8929; G0431; G0434; G0479; G0480; J1650; J1940; Q9957